=== PATIENT | female | born 1955 | race Two or more races ===

== ENCOUNTER 2017-08-30 00:01 | Emergency (ER) | payer OTHER ==
[~2017-08-30] VITALS: Ht 160 cm; Wt 64.4 kg
[2017-08-30] MEDS ORDERED: MECLIZINE HCL25 MG PO (07:30)
== END 2017-08-30 08:09 | disposition home or self-care (01) ==
LOC: ER 00:01
DX: H81.13 Benign paroxysmal vertigo, bilateral (principal)

== ENCOUNTER 2019-10-26 09:36 | Inpatient (IN) | payer OTHER ==
[~2019-10-26] VITALS: Ht 157.5 cm; Wt 60.8 kg
[~2019-10-26 09:36] MED LIST: MECLIZINE HCL25 MG PO
[2019-10-26] MEDS ORDERED: DICY20TA (09:48)
== END 2019-10-29 18:16 | disposition home or self-care (01) | DRG 392 ==
LOC: ER 09:36 → MEDI 10-27 09:09
PROVIDERS: ADMIT Internal Medicine; ATTEND Internal Medicine
DX: K57.32 Diverticulitis of large intestine without perforation or abscess without bleeding (principal); D72.828 Other elevated white blood cell count; R10.32 Left lower quadrant pain; H81.13 Benign paroxysmal vertigo, bilateral; Z03.818 Encounter for observation for suspected exposure to other biological agents ruled out

== ENCOUNTER 2022-10-20 09:44 | Outpatient (CLI) | payer OTHER ==
[~2022-10-20 09:44] MED LIST changes: +DICY20TA
== END 2022-10-20 09:46 | disposition home or self-care (01) ==
LOC: NUCLEAR 09:44
PROVIDERS: ATTEND Internal Medicine
DX: R06.9 Unspecified abnormalities of breathing (principal); E78.2 Mixed hyperlipidemia